=== PATIENT | female | born 1970 | race Caucasian/White ===

== ENCOUNTER 2016-04-18 13:05 | Emergency (ER) | payer BC ==
[2016-04-18 13:36] VITALS: RESP 18; TEMP 99.1
[2016-04-18] MEDS ORDERED: Sodium Chloride 0.9% 1,000 ML PRIMARY IV ONE (13:46)
--- NOTE | 2016-04-18 13:46 | EKG ---
[address] [address] Measurements Intervals Smiley Rate: 80 P: 45 IN: 172 QRS: 56 QRSD: 79 T: 39 QT: 390 QTc: 426 Interpretive Statements SINUS RHYTHM No previous ECG available for comparison Electronically Signed On 04-18-16 14:55:56 MST by Raul Magana [email or web address]
[2016-04-18 13:51] LABS: BASOPHILS # (AUTO) 0.02 10*3/UL; BASOPHILS % (AUTO) 0.5 % (0-1); EOSINOPHILS % (AUTO) 2.8 % (0-8); HEMATOCRIT 36.7 % (37.0-47.0); HEMOGLOBIN 11.5 g/dL (12.0-16.0); IMM GRAN % (AUTO) 0.5 % (0-5); IMM GRAN# (AUTO) 0.02 10*3/UL; LYMPHOCYTES # (AUTO) 1.15 10*3/uL; LYMPHOCYTES % (AUTO) 29.7 % (10-50); MEAN CORPUSCULAR HEMOGLOBIN 27.1 PG (27-31); MEAN CORPUSCULAR HGB CONC 31.3 g/dL (33-37); MEAN PLATELET VOLUME 9.7 FL (7.4-12.2); MONOCYTES # (AUTO) 0.35 10*3/UL (0.3-0.8); NEUTROPHILS # (AUTO) 2.22 10*3/UL; NEUTROPHILS % (AUTO) 57.5 % (50-80); RDW COEFFICIENT OF VARIATION 15.5 % (11.5-14.5); RED BLOOD COUNT 4.25 10^6/uL (4.20-5.40); WHITE BLOOD COUNT 3.87 10^3/uL (4.8-10.8)
[2016-04-18 14:00] LABS: ASPARTATE AMINO TRANSFERASE 16 IU/L (8-39); BILIRUBIN,TOTAL 0.5 mg/dL (0.3-1.2); BLOOD UREA NITROGEN 11 mg/dL (7-22); CALCIUM 8.3 mg/dL (8.7-10.7); CHLORIDE 108 meq/L (98-112); CREATININE 0.5 mg/dL (0.50-1.20); EST GLOMERULAR FILTRATION > 60 (>60 ml/min/1.73m(2)); GLUCOSE 92 mg/dL (78-110); POTASSIUM 3.9 meq/L (3.8-5.2); SODIUM 140 meq/L (135-145); TOTAL PROTEIN 6.7 g/dL (6.1-8.0)
[2016-04-18 14:12] LABS: PLATELET MORPHOLOGY COMMENT NORMAL MORPHOLOGY (NORM)
[2016-04-18] MEDS ORDERED: ONDANSETRON 4 MG/2 ML VIAL IVP ONE (14:14)
[2016-04-18 14:54] LABS: BILIRUBIN,URINE NEGATIVE (NEG); CLARITY,URINE CLEAR (CLEAR); GLUCOSE, URINE (UA) NEGATIVE (NEG); LEUKOCYTE ESTERASE ,URINE NEGATIVE (NEG); NITRATE,URINE NEGATIVE (NEG); OCCULT BLOOD,URINE NEGATIVE (NEG); PH,URINE 8.5 (5.0-8.5); PROTEIN,URINE NEGATIVE (NEG); UROBILINOGEN,URINE 0.2 EU/dL (0.2)
[2016-04-18 14:57] LABS: URINE SAMPLE TYPE CLEAN CATCH URINE
--- NOTE | 2016-04-18 22:52 | PDOC ---
Dizziness HPI - General Chief Complaint: Syncope / Near-Syncope Stated Complaint: DIZZINESS Date Seen by Provider: 04/18/16 Time Seen by Provider: 13:15 Source: POSITIVE: Patient, Spouse, Old records Exam Limitations: POSITIVE: No limitations Nurse's Notes Reviewed & Considered: Yes - History of Present Illness Initial Comments: The patient is a 45-year-old female. She states that since around 5:30 AM this morning she has the feeling" like I'm on a roller coaster". She states she has some sensation of movement and some spinning sensation. She also states that she has headaches and has been" dry heaving". Patient has a long-standing history of chronic neck pain and she also has a history of chronic recurring headaches. She has had a cervical fusion in the past and is still having neck pain and has been receiving injections in her neck in [place]. She states for the past 2-3 months she has been having numbness to the left side of her face fairly persistently. She also has intermittent numbness to her left arm, left leg and right arm. She states she had an MRI of her brain in [place] at the [facility] yesterday, but has not yet received a report. Body Location Affected: REPORTS: Head, Other (Dizziness; possible vertigo) Timing: REPORTS: Abrupt Duration: <24 hours (Approximately 8 hours for dizziness and a sensation of motion; 2-3 months for paresthesias as above.) Severity: Moderate Persistent/Worse since (date): 04/18/16 Persistent/Worse since (time): 05:30 Context: REPORTS: Rest Quality: REPORTS: Other (Patient denies any pain other than chronic neck pain) Associated Symptoms: REPORTS: Nausea (With quotation kelli dry heaves"), Movement Sense - Vague, Headache (Chronic), Light Headedness, With Position Change Most Recent Episode Lasted (minutes): 08:00 Current Ability to Walk/Stand: REPORTS: Walks w/o Assistance Usual Ability to Walk/Stand: REPORTS: Walks w/o Assistance Aggrevated by: REPORTS: Position Changes (Possibly exacerbated by position change of head) Similar Symptoms Previously: No Recently seen/treated/hospitalized: Yes Any Prior Injuries Related to Current Complaint?: No - Patient Home Medications Home Medications: Home Medications Gabapentin [Neurontin] 300 mg PO TID 04/18/16 Meloxicam [Mobic] 7.5 mg PO DAILY 04/18/16 - Patient Allergies Allergies/Adverse Reactions: Allergies Allergy/AdvReac Type Severity Reaction Status Date / Time celecoxib [From Celebrex] Allergy Intermediate .JOINT PAIN Verified 04/18/16 13: 19 codeine [Codeine] Allergy Intermediate VOMITING Verified 04/18/16 13:19 levofloxacin [From Levaquin] Allergy Intermediate Anaphylaxis Verified 04/18/16 13:19 shellfish derived Allergy NOT Verified 04/18/16 13:19 APPLICABLE Past Medical History - heen HEENT History: Denies History Cardiovascular History: Other (please comment) Additional Cardiovasular History: STATES HAS MVP, heart murmur Respiratory History: Denies History Gastrointestinal History: Denies History Genitourinary History: Kidney Stones Additional Genitourinary History: KIDNEY STONE, 2YRS AGO Endocrine History: Denies History Musculoskeletal History: Back Injury Additional Musculoskeletal History: PT HAD IM INJECTION OF TORADOL, STATES THAT IT DAMAGED HER NERVES IN HER LOWER BACK. Neurological History: Denies History Blood Disorders: Denies History Psychiatric History: Anxiety Disorders Additional Psychiatric History: LAST PANIC ATTACT 2 YRS AGO LMP: "last week" In Past Year Been Physically Harmed or Verbally Threatened: No History of MDRO: No Tobacco Use: Never Smoker Alcohol Use: Occasionally Substance Use Type: None Previous Surgical History: Yes Type / Date of Surgery: cervical fusion 10/04/15 Anesthesia Reactions: Yes (SEE NOTE) Significant Family History: No pertinent family hx Past Medical History Reviewed: Reviewed - No Changes ROS - Limitations ROS Limitations: No Limitations Constitution: REPORTS: Denies Symptoms Cardiovascular: REPORTS: Denies Cardiac Symptoms Respiratory: REPORTS: Denies Resp Symptoms Neurological: REPORTS: Numbness (2 left side of face, left upper extremity, right upper extremity and left lower extremity intermittently for the past 2-3 months) Gastrointestinal: REPORTS: Denies GI Symptoms Endocrine: REPORTS: Denies Symptoms Musculoskeletal: REPORTS: Denies MS Symptoms Genitourinary: REPORTS: Denies Symptoms Eyes: REPORTS: Denies Symptoms ENT: REPORTS: Denies Symptoms Skin: REPORTS: Denies Skin Symptoms Lympathic: REPORTS: Denies Lympathic Symptoms Immunologic: POSITIVE: Denies Symptoms Psychiatric: POSITIVE: Anxiety Dizziness PE - General Appearance General Appearance: POSITIVE: No Acute Distress, Alert - HEENT HEENT: POSITIVE: Head Inspection Nml, Ears Inspection Nml, Nose Inspection Nml, Oral/Dental Inspect. Nml, Pharynx Inspect. Nml, PERRL, EOMI, Other (Negative [place] -Hallpike test). NEGATIVE: Eyes Inspection Nml (Lateral nystagmus which extinguishes rapidly; no vertical or rotatory nystagmus) - Pupil Size Pupil Size: 3 mm: Bilateral (PERRLA) - Neck Neck: POSITIVE: Supple - Respiratory Respiratory: POSITIVE: No Respiratory Distress, Breath Sounds Normal - Cardiovascular Cardiovascular: POSITIVE: Regular Rate & Rhythm, No Murmur, No Gallop, Heart Sounds Normal Peripheral Pulses: Radial (R): 2+, Radial (L): 2+ - Abdomen Abdomen: Soft: (All Quadrants), Normal Bowel Sounds: (All Quadrants), Denies Tenderness: (All Quadrants), No Splenomegaly: (All Quadrants), No Hepatomegaly: (All Quadrants), No Guarding: (All Quadrants), No Rebound: (All Quadrants), No Palpable Pulse: (All Quadrants), No Palpabale Mass: (All Quadrants), No Distention: (All Quadrants), No Rigidity: (All Quadrants) - Skin Skin: POSITIVE: Intact, Normal For Race, Warm, Dry, No Rash - Extremities Extremity: Non-Tender: (All Extremities), Normal ROM: (All Extremities), Normal Inspection: (All Extremities) - Neuro/Psych Neuro/Psych: POSITIVE: Alert, Affect Appropriate, Mood Appropriate, Normal Speech, Normal Cognition Cranial Nerves: POSITIVE: Normal As Tested, No Evidence of Acute CVA Cerebellar: POSITIVE: Normal As Tested Sensorimotor: POSITIVE: No Motor Deficits, No Sensory Deficits, Reflexes Normal Dizziness Progress - Results Reviewed by me Xrays/CTs/US Reviewed by me: Yes Discussed with Radiologist: Yes Radiology Findings: MRI of brain done yesterday at [facility] in [place] was reviewed. MRI showed no evidence of hemorrhage, hydrocephalus or mass effect an intracranial flow-voids appeared unremarkable. There was paraventricular white matter signal abnormality which according to the radiologist may relate to demyelinating disease, small vessel ischemic disease, vasculitis. Lab Results Reviewed: Yes Lab Results:: Laboratory Results 04/18/16 04/18/16 Range/Units 13:45 14:49 WBC 3.87 L (4.8-10.8) 10^3/uL RBC 4.25 (4.20-5.40) 10^6/uL Hgb 11.5 L (12.0-16.0) g/dL Hct 36.7 L (37.0-47.0) % MCV 86.4 (81-99) FL MCH 27.1 (27-31) PG MCHC 31.3 L (33-37) g/dL RDW Std Deviation 47.7 (39-50) fL RDW Coeff of Qing 15.5 H (11.5-14.5) % Plt Count 211 (140-350) 10*3/uL MPV 9.7 (7.4-12.2) FL Immature Gran % (Auto) 0.5 (0-5) % Neut % (Auto) 57.5 (50-80) % Lymph % (Auto) 29.7 (10-50) % [place] % (Auto) 9.0 (5-15) % Eos % (Auto) 2.8 (0-8) % Baso % (Auto) 0.5 (0-1) % Immature Gran # (Auto) 0.02 10*3/UL Neut # (Auto) 2.22 10*3/UL Lymph # (Auto) 1.15 10*3/uL [place] # (Auto) 0.35 (0.3-0.8) 10*3/UL Eos # (Auto) 0.11 10*3/UL Baso # (Auto) 0.02 10*3/UL WBC Morphology Comment Normal morphology (NORM) Plt Morphology Comment Normal morphology (NORM) RBC Morph Comment Normal morphology (NORM) Sodium 140 (135-145) meq/L Potassium 3.9 (3.8-5.2) meq/L Chloride 108 (98-112) meq/L Carbon Dioxide 23 (23-33) meq/L Anion Gap 9 (5-20) BUN 11 (7-22) mg/dL Creatinine 0.5 (0.50-1.20) mg/dL Estimated GFR > 60 (>60 ml/min/1.73m(2)) BUN/Creatinine Ratio 22.00 H (6-20) Glucose 92 (78-110) mg/dL Calculated Osmolality 288.0 (267-292) mOsm/kg Calcium 8.3 L (8.7-10.7) mg/dL Total Bilirubin 0.5 (0.3-1.2) mg/dL AST 16 (8-39) IU/L ALT 29 (9-52) IU/L Alkaline Phosphatase 49 (38-126) IU/L Total Protein 6.7 (6.1-8.0) g/dL Albumin 3.8 (3.5-4.8) g/dL Globulin 2.9 (2.50-4.10) g/dL Albumin/Globulin Ratio 1.30 (1.3-2.0) mg/g Serum HCG, Qual Negative Ur Collection Type Clean catch urine Urine Color Yellow Urine Clarity Clear (CLEAR) Urine pH 8.5 (5.0-8.5) Ur Specific [place] 1.020 (1.005-1.030) Urine Protein Negative (NEG) mg/dl Urine Glucose (UA) Negative (NEG) mg/dL Urine Ketones Negative (NEG) Urine Occult Blood Negative (NEG) Urine Nitrate Negative (NEG) Urine Bilirubin Negative (NEG) Urine Urobilinogen 0.2 (0.2) EU/dL Ur Leukocyte Esterase Negative (NEG) Ur Culture Indicated? Pending EKG Interpreted/Reviewed By Me:: Yes EKG Interpretation:: POSITIVE: Normal Sinus Rhythm, Normal Rate, Normal Intervals, Normal [place], Normal QRS, Normal ST/T - Patient's Progress Pain Medication Addressed: POSITIVE: Not Applicable School/Work Release Addressed: POSITIVE: Not Applicable Re-Examine Time:: 15:15 Status: POSITIVE: Unchanged, Re-Examined - Consult Counseled: POSITIVE: Patient, Family, RE: Lab Results, RE: Radiology Results, RE : DX, RE: Need for F/U Patient Care Time - Estimated PCT Patient Care Time (In Minutes): 50 Vital Signs - VS Reviewed Vital Signs Reviewed: Yes Discharge Clinical Impression: Vertigo, MRI of brain abnormal Discharge Disposition: Discharged to Home Condition: Fair Patient Instructions Given at Discharge: Paresthesia (ED), Dizziness (ED) Additional Instructions: I am not completely sure what is causing your dizziness/vertigo and your numbness to the left side of your face, left arm, right arm and left leg. The MRI of your brain which was done yesterday was read by the radiologist as being compatible with what is known as a" demyelinating disease" the most common of which is multiple sclerosis. I am not telling you that you have multiple sclerosis. But multiple sclerosis can cause a variety of complaints including numbness (paresthesias) and dizziness and vertigo. Therefore, I have arrange for you to follow-up with Dr. Calix to coordinate your further evaluation of these symptoms. I believe you do need to have an evaluation by a neurologist. We'll give you a trial of meclizine, one every 6 hours as necessary for dizziness, which hopefully will help relieve this symptom. Return here anytime if condition worsens in any way. Follow Up With: CAIO MOHAN [Primary Care Provider] - (Instructions as above. Follow-up with Dr. Calix. Return here anytime if condition worsens in any way.)
== END 2016-04-18 15:41 | disposition home or self-care (01) ==
LOC: ER 13:05
DX: R42 Dizziness and giddiness (principal); R51 Headache; M54.2 Cervicalgia; R20.0 Anesthesia of skin; R11.0 Nausea
CPT/HCPCS: 36415; 80053; 81003; 84703; 85025; 93005; 93010; 96374; 99283; J2405; J7030

== ENCOUNTER → 2016-09-02 | Outpatient (CLI) | payer BC | LOC: MOB LAB 16:15 | PROVIDERS: ATTEND Family Medicine | DX: N89.8 Other specified noninflammatory disorders of vagina (principal); N94.10 Unspecified dyspareunia | CPT/HCPCS: 87480; 87491; 87510; 87591; 87660 ==

== ENCOUNTER → 2016-09-19 | Outpatient (CLI) | payer BC ==
--- NOTE | 2016-09-19 16:17 | DI ---
PELVIC ULTRASOUND, 09/19/2016 1:18 PM Clinical History: Pelvic pain. Previous Exam: None at this facility. Technique: Transabdominal scans are performed. Unfortunately, the bladder was not completely filled d uring this exam. The uterus measures approximately 45 x 50 x 100 mm. No gross abnormality of the uterus is noted altho ugh the detail is lacking because of incomplete filling of the bladder. The central uterine stripe me asures 16 mm. The ovaries are normal and demonstrate vascular flow. There are no fluid collections or masses. Readin. The uterus is retroflexed and appears grossly normal. Detail is lacking because of incomplete savanna ling of the bladder. If further evaluation of the uterus is required clinically, then a transvaginal ultrasound is recommended or a repeat study with a full bladder. 2. Both ovaries are normal.
--- NOTE | 2016-09-19 20:38 | DI ---
CT ABDOMEN SCAN WITHOUT IV CONTRAST, 09/19/2016 1:33 PM : Clinical History: Generalized abdominal pain. Previous Exam: None at this facility. Scans are performed from the lower lung bases through the liver and kidneys without IV contrast. The patient indicated she experienced what apparently was laryngeal edema with a previous episode with IV contrast. She therefore declined to have IV contrast. Low density oral barium contrast (Volumen - lo w density CT enterography oral contrast) was administered for this exam. The lung bases are clear. The stomach is capacious particularly in the region of the fundus which is displaced posteriorly and inferiorly to the body of the stomach. The liver, spleen, pancreas, and adr enal glands are normal. The gallbladder is grossly normal. Both kidneys are normal in size, shape, po sition and contour. There is no hydronephrosis or hydroureter. No renal or ureteral calculi are prese nt. There are no abnormal retrocrural or periaortic nodes. There is no ascites. The colon and small b owel are visualized to the level of the iliac crests. The ileocecal valve is normal. The cecal tip is not included on this study because a CT scan of the pelvis was not ordered. READIN. The stomach is markedly dilated especially in the region of the fundus. The fundus is displaced p osteriorly and folded inferiorly and lies posterior to the body of the stomach. 2. Exam itself is otherwise normal. The pelvis was not examined.
== END ==
LOC: US 13:03
PROVIDERS: ATTEND Family Medicine
DX: R10.2 Pelvic and perineal pain (principal); N94.10 Unspecified dyspareunia; R10.84 Generalized abdominal pain
CPT/HCPCS: 74150; 76856